=== PATIENT | female | born 1935 | race Caucasian/White ===

== ENCOUNTER 2020-03-26 10:17 | Outpatient (REF) | payer MEDICARE, SELFPAY ==
--- NOTE | ~2020-03-26 | MM_ITS ---
EXAMINATION: MM SCREENING DIGITAL BREAST TOMOSYNTHESIS, LEFT CLINICAL INFORMATION: Screening. Asymptomatic. Prior history right mastectomy for breast cancer 1982. Due for yearly. COMPARISON: Mammography: 03/14/2019, 07/28/2016 TECHNIQUE: Digital breast tomosynthesis is performed in both the craniocaudal and mediolateral oblique views along with computer-aided detection (CAD). Synthesized 2D images are generated from the tomosynthesis. FINDINGS: The breasts are almost entirely fatty (ACR BI-RADS breast composition Category a). There are no significant masses, abnormal calcifications, or other abnormalities. There are some vascular and ductal secretory calcifications again noted. No significant changes from prior studies. MM/MM tomosynthesis screening LT IMPRESSION: No mammographic evidence of malignancy. ASSESSMENT: BI-RADS 2: Benign RECOMMENDATION: Routine annual mammography screening. This patient's information was entered into a reminder system with a target due date for their next mammogram.
== END 2020-03-26 10:18 | disposition home or self-care (01) ==
LOC: HO.MAMMO 10:17
PROVIDERS: PCP Internal Medicine; Visit Provider Internal Medicine
DX: Z12.31 Encounter for screening mammogram for malignant neoplasm of breast (principal); Z85.3 Personal history of malignant neoplasm of breast; Z90.11 Acquired absence of right breast and nipple
CPT/HCPCS: 77063; 77067

== ENCOUNTER 2021-04-05 12:11 | Outpatient (REF) | payer MEDICARE, SELFPAY ==
--- NOTE | ~2021-04-05 | MM_ITS ---
EXAMINATION: MM SCREENING DIGITAL MAMMOGRAPHY, LEFT CLINICAL INFORMATION: Remote right mastectomy for breast cancer, 1982. Due for yearly. COMPARISON: Mammography: 03/26/2020, 03/14/2019, 07/28/2016 TECHNIQUE: Digital mammography is performed in craniocaudal and mediolateral oblique views along with computer-aided detection (CAD). FINDINGS: There are scattered areas of fibroglandular density (ACR BI-RADS breast composition Category b). There are no significant masses, abnormal calcifications, or other abnormalities. No significant changes from prior exams. MM/MM screening mammo unilat LT IMPRESSION: No mammographic evidence of malignancy. ASSESSMENT: BI-RADS 1: Negative RECOMMENDATION: Routine annual mammography screening. This patient's information was entered into a reminder system with a target due date for their next mammogram.
== END 2021-04-05 12:12 | disposition home or self-care (01) ==
LOC: HO.MAMMO 12:11
PROVIDERS: PCP Internal Medicine; Visit Provider Internal Medicine
DX: Z12.31 Encounter for screening mammogram for malignant neoplasm of breast (principal)
CPT/HCPCS: 77067

== ENCOUNTER 2021-05-19 10:30 | Outpatient (REF) | payer MEDICARE, SELFPAY ==
[2021-05-19 10:33] LABS: MANUAL DIFF FLAG NO
[2021-05-19 10:50] LABS: Basophils Percent Auto 0.9 % (0-2); Eosinophils Absolute Auto 0.3 X10*3/uL (0.0-0.4); Eosinophils Percent Auto 5.4 % (0-4); Hematocrit 38.7 % (37.0-47.0); Hemoglobin 12.6 g/dl (12.0-16.0); Lymphocytes Percent Auto 42.7 % (20-40); Mean Corpuscular HGB Conc 32.6 g/dl (31.0-35.0); Mean Corpuscular Hemoglobin 30.8 pg (27.0-33.0); Mean Corpuscular Volume 94.6 fL (80.0-98.0); Mean Platelet Volume 9.2 fL (9.4-12.3); Monocytes Absolute Auto 0.5 X10*3/uL (0.1-1.2); Neutrophils Absolute Auto 1.9 x10*3/uL (2.0-8.3); Platelet Count 227 X10*3/uL (160-400); Red Blood Count 4.09 X10*6/uL (4.20-5.50); Red Cell Distribution Width 13.3 % (11.0-16.0); White Blood Count 4.6 X10*3/uL (4.8-10.8)
[2021-05-19 10:51] LABS: Appearance Urine HAZY; Color Urine YELLOW; Glucose Urine UA NEG (NEG); Leukocyte Esterase Urine 3+ (NEG); Nitrite Urine NEG (NEG); PH 7.5 (5.0-8.0); Urine Blood 1+ (NEG); Urine Ketones NEG (NEG); Urine Protein NEG (NEG-TRACE)
[2021-05-19 10:57] LABS: Alanine Aminotransferase 19 U/L (0-31); Albumin Level 3.9 g/dL (3.5-5.0); Alkaline Phosphatase 68 U/L (39-117); Anion Gap 12 (12-20); Aspartate Amino Transferase 23 U/L (5-31); Bilirubin Total 0.7 mg/dL (0.0-1.0); Blood Urea Nitrogen 12 mg/dL (9-16); Calcium 9.5 mg/dL (8.4-10.2); Carbon Dioxide 29 mmol/L (22-29); Chloride 104 mmol/L (96-108); Cholesterol 204 mg/dL; Estimated Glomerular Filt Rate > 60; Glucose Fasting 89 mg/dL (60-99); HDL Cholesterol 68 mg/dL; LDL Cholesterol Calculated 116 mg/dl; Potassium 4.5 mmol/L (3.3-5.1); Sodium 140 mmol/L (135-145); Total Protein 7.1 g/dL (6.5-8.0); Triglycerides 101 mg/dL
[2021-05-19 11:05] LABS: RBC Urine 0 /HPF (0)
[2021-05-19 11:06] LABS: WBC Clumps Urine NOTED
== END 2021-05-19 10:31 | disposition home or self-care (01) ==
LOC: HO.LNP 10:30
PROVIDERS: Visit Provider Internal Medicine
DX: Z00.00 Encounter for general adult medical examination without abnormal findings (principal); I10 Essential (primary) hypertension
CPT/HCPCS: 80053; 80061; 81001; 81003; 85025

== ENCOUNTER 2021-05-26 10:52 | Outpatient (REF) | payer MEDICARE, SELFPAY ==
[2021-05-26 12:05] LABS: Appearance Urine CLEAR; Color Urine YELLOW; Glucose Urine UA NEG (NEG); Leukocyte Esterase Urine NEG (NEG); Nitrite Urine NEG (NEG); Specific Gravity - Urine <= 1.005 (1.005-1.025); Urine Blood TRACE (NEG); Urine Ketones NEG (NEG); Urine Protein NEG (NEG-TRACE)
[2021-05-26 12:17] LABS: RBC Urine 0-2 /HPF (0); Squamous Epithelial Cell Urine TRACE /LPF; WBC Urine 0-2 /HPF (0-4)
== END 2021-05-26 10:53 | disposition home or self-care (01) ==
LOC: HO.LNP 10:52
PROVIDERS: Visit Provider Internal Medicine
DX: R31.9 Hematuria, unspecified (principal)
CPT/HCPCS: 81001; 81003

== ENCOUNTER 2022-05-25 10:47 | Outpatient (REF) | payer MEDICARE, SELFPAY ==
[2022-05-25 10:50] LABS: MANUAL DIFF FLAG NO
[2022-05-25 12:45] LABS: Basophils Percent Auto 0.8 % (0-2); Eosinophils Absolute Auto 0.3 X10*3/uL (0.0-0.4); Eosinophils Percent Auto 6.7 % (0-4); Hematocrit 40.1 % (37.0-47.0); Hemoglobin 12.9 g/dl (12.0-16.0); Imm Gran Abs Auto 0.01 X10*3/uL (0.00-0.03); Imm Gran Pct Auto 0.2 % (0.0-0.4); Lymphocytes Absolute Auto 2.2 X10*3/uL (1.2-4.9); Lymphocytes Percent Auto 45.7 % (20-40); Mean Corpuscular HGB Conc 32.2 g/dl (31.0-35.0); Mean Corpuscular Hemoglobin 30.1 pg (27.0-33.0); Mean Corpuscular Volume 93.5 fL (80.0-98.0); Mean Platelet Volume 9.8 fL (9.4-12.3); Monocytes Absolute Auto 0.5 X10*3/uL (0.1-1.2); Monocytes Percent Auto 9.4 % (2-11); Neutrophils Absolute Auto 1.8 x10*3/uL (2.0-8.3); Neutrophils Percent Auto 37.2 % (45-73); Platelet Count 225 X10*3/uL (160-400); Red Blood Count 4.29 X10*6/uL (4.20-5.50); Red Cell Distribution Width 13.1 % (11.0-16.0); White Blood Count 4.9 X10*3/uL (4.8-10.8)
[2022-05-25 13:16] LABS: Appearance Urine Cloudy; Color Urine Yellow; Glucose Urine UA Negative (Negative); Leukocyte Esterase Urine Large (3+) (Negative); Nitrite Urine Positive (Negative); PH 7.5 (5.0-9.0); Specific Gravity - Urine 1.015 (1.005-1.025); UMIC TRIGGER UACC YES; Urine Blood Trace (Negative); Urine Ketones Negative (Negative); Urine Protein Trace mg/dL (Neg-Trace)
[2022-05-25 13:17] LABS: Alanine Aminotransferase 11 U/L (0-31); Albumin Level 3.9 g/dL (3.5-5.0); Alkaline Phosphatase 68 U/L (39-117); Anion Gap 10 (12-20); Aspartate Amino Transferase 22 U/L (5-31); Bilirubin Total 0.7 mg/dL (0.0-1.0); Blood Urea Nitrogen 13 mg/dL (9-16); Calcium 9.3 mg/dL (8.4-10.2); Carbon Dioxide 29 mmol/L (22-29); Chloride 108 mmol/L (96-108); Cholesterol 210 mg/dL; Estimated Glomerular Filt Rate > 60; Glucose Fasting 88 mg/dL (60-99); HDL Cholesterol 67 mg/dL; LDL Cholesterol Calculated 125 mg/dl; Potassium 4.4 mmol/L (3.3-5.1); Sodium 143 mmol/L (135-145); Total Protein 6.7 g/dL (6.5-8.0); Triglycerides 90 mg/dL
[2022-05-25 13:19] LABS: Bacteria Urine 4+ (None Seen); Hyaline Casts Urine 0-2 /LPF (0-2); Squamous Epithelial Cell Urine 0-2 /HPF (0-2); UACC Culture Trigger YES; WBC Urine >50 /HPF (0-5)
== END 2022-05-25 10:48 | disposition home or self-care (01) ==
LOC: HO.LNP 10:47
PROVIDERS: Visit Provider Internal Medicine
DX: Z00.00 Encounter for general adult medical examination without abnormal findings (principal); I10 Essential (primary) hypertension; R82.90 Unspecified abnormal findings in urine; Z86.2 Personal history of diseases of the blood and blood-forming organs and certain disorders involving the immune mechanism
CPT/HCPCS: 80053; 80061; 81001; 85025; 87086; 87088; 87186

== ENCOUNTER 2022-06-09 12:01 | Outpatient (REF) | payer MEDICARE, SELFPAY ==
[2022-06-09 12:25] LABS: Appearance Urine Clear; Color Urine Yellow; Glucose Urine UA Negative (Negative); Leukocyte Esterase Urine Trace (Negative); Nitrite Urine Negative (Negative); PH 6.5 (5.0-9.0); UMIC TRIGGER UACC YES; Urine Blood Negative (Negative); Urine Ketones Negative (Negative); Urine Protein Negative (Neg-Trace)
[2022-06-09 12:37] LABS: Bacteria Urine None Seen (None Seen); RBC Urine 0-2 /HPF (0-2); Squamous Epithelial Cell Urine 0-2 /HPF (0-2); WBC Urine 0-5 /HPF (0-5)
== END 2022-06-09 12:02 | disposition home or self-care (01) ==
LOC: HO.LNP 12:01
PROVIDERS: Visit Provider Internal Medicine
DX: R31.9 Hematuria, unspecified (principal)
CPT/HCPCS: 81001

== ENCOUNTER 2024-10-04 12:09 | Emergency (ER) | payer MEDICARE, SELFPAY ==
--- NOTE | ~2024-10-04 | CT_ITS ---
CLINICAL HISTORY: ams --- Additional Notes or Special Instructions: Tried to scan @ 14:45 - pt combative, notified provider CT head without contrast Comparison: None provided Findings: No intra-axial mass, midline shift, hydrocephalus, or acute hemorrhage. Moderate atrophy-like change or white matter disease. The visualized paranasal sinuses and mastoid air cells are normal. The orbits are within normal limits. There is no acute fracture. IMPRESSION: 1. No acute intracranial findings. 2. Moderate atrophy-like change or white matter disease. This document has been electronically signed by: Diane Brown MD on 10/04/2024 18:45:02
--- OUTSIDE RECORDS SUMMARY | 2024-10-04 11:24 | XMS_ITS | Continuity of Care Document ---
Author Organization [facility] Address 1 [facility] [address] [place] [address] Phone Care Team Providers Care Grinding Room Supervisor Name Role Phone Aicha Rowe NP Unavailable Unavailable Allergies, Adverse Reactions, Alerts Substance Reaction Status Criticality No Known Allergies Active No Inform ation Medications Medication Instructions Dosage Effective Dates (start - stop) Status Comments acetaminophen 325 mg tablet TAKE 2 TABLETS BY MOUTH THREE TIMES A DAY. CAN BE CRUSHED. - Active ASPIRIN 81 MG CHEWABLE TABLET CHEW 1 TABLET BY MOUTH ONCE A DAY - Active Bactrim 400 mg-80 mg tablet take 1/2 tablet by oral route once at bedtime - Active trazodone 50 mg tablet take 1 tablet by oral route BID at 7am and at 5pm - Active irbesartan 75 mg tablet take 1/2 tablet by oral route every day - Active Miralax 17 gram oral powder packet Take oral route 17 g (~1 packet) dissolved in 4 to 8 ounces of beverage every other day - Active escitalopram 10 mg tablet take 1 tablet by oral route every day 10 MG - Active Cut N Crush misc All medication can be crush - Active Aricept 10 mg tablet take 1 tablet by oral route every day in the evening 10 MG - Active cyanocobalamin (vit B-12) 500 mcg tablet TAKE 1 TABLET BY MOUTH DAILY. - Active Vitamin D3 25 mcg (1,000 unit) tablet take 1 tablet by oral route every day 1 tablet - Active Advance Directives Directive Yes / No Effective Date File Name No Information Encounters Encounter Description Practice Location Reason(s) For Visit Diagnoses Date Provider [facility] [address] [address], [place], [place], [id number], tel:[phone] [place] No Information 5 Jae Holcomb. 1 [facility], [place], [place], [id number], [place]. tel:[phone] [facility], [address] [address], [place], [place], [id number], [place] tel:[phone] [place] No Information 5 Titus Leavitt. [facility] [place] [id number], [place]. tel:[phone] [facility], [facility], [place], [place], [id number], [place] tel:[phone] Boss No Information 5 Titus Leavitt. [address] [place], [id number], [place]. tel:[phone] [facility], [address] [address], [place], [place], [id number], [place] tel:[phone] Boss No Information 5 Titus Leavitt. [address] [place], [id number], [place]. tel:[phone] [facility], [address] [address], [place], [place], [id number], [place] tel:[phone] Boss Severe Alzheimer's dementia of other onset with other behavioral disturbanceDementia in other diseases classified elsewhere, severe, with other behavioral disturbance 5 Titus Leavitt. [address] [place], [id number], [place]. tel:[phone] [facility], [facility] [address] [place] [address], [id number], [place] tel:[phone] Boss Acute Visit (chief complaint) Recurrent UTISevere late onset Alzheimer's dementia with agitationDementia in other diseases classified elsewhere, severe, with agitation 5 Titus Leavitt. [address], [place], [place], [id number], [place]. tel:[phone] [facility] [address] [facility], [place], [place], [id number], [place] tel:[phone] Boss Acute Visit (chief complaint)P ost Hospital Evaluation (chief complaint) Primary hypertensionHistory of recent hospitalizationSevere Alzheimer's dementia of other onset with agitationDementia in other diseases classified elsewhere, severe, with agitationOnychomycosis of toenail 5 Titus Leavitt. [address], [place], [place], [id number], [place]. tel:[phone] [facility], [place], [place], [id number], [place] tel:[phone] Boss Encounter for nutritional assessmentUnderweight 5 Matthias Ford. [address], [place], [place], [id number], [place]. tel:[phone] [facility], [facility], [place], [place], [id number], [place] tel:[phone] Boss Acute cough 5 Titus Leavitt. [address] [place], [place], [address], [place]. tel:[phone] [facility], [address], [place], [place], [id number], [place] tel:[phone] Boss Semi-Annual (chief complaint) Routine health maintenancePrimary hypertensionAge-related osteoporosis without current pathological fractureModerate late onset Alzheimer's dementia with agitationDementia in other diseases classified elsewhere, moderate, with agitation 5 Titus Leavitt. [address], [place], [place], [id number], [place]. tel:[phone] [facility], [address], [place], [place], [id number], [place] tel:[phone] Boss No Information 5 Titus Leavitt. [address] [place], [place], [id number], [place]. tel:[phone] [facility] [address] [facility], [place], [place], [address], [place] tel:[phone] Boss Encounter for rehabilitation evaluation 0 5 Mary Paulino. [address], [place], [place], [id number], [place]. tel:[phone] [facility], [facility] [address], [place], [place], [address], [place] tel:[phone] Boss Recurrent UTI 5 Titus Leavitt. [address], [place], [place], [address], [place]. tel:[phone] [facility] [address] [facility], [place], [place], [id number], [place] tel:[phone] Boss Encounter for rehabilitation evaluation 5 Danyel Manjarrez. [address], [place], [place], [id number], [place]. tel:[phone] [facility] [address] [facility], [place], [place], [id number], [place] tel:[phone] Boss Acute Visit (chief complaint) Severe late onset Alzheimer's dementia with agitationDementia in other diseases classified elsewhere, severe, with agitationPrimary hypertension May- 5 Titus Leavitt. [address] [place], [place], [id number], [place]. tel:[phone] [facility], [address], [place], [place], [id number], [place] tel:[phone] Boss Severe late onset Alzheimer's dementia with agitationDementia in other diseases classified elsewhere, severe, with agitation Apr- 5 Titus Leavitt. [address], [place], [place], [id number], [place]. tel:[phone] [facility], [place], [place], [id number], [place] tel:[phone] Boss No Information Mar-1 0-202 5 Titus Leavitt. [address], [place], [place], [id number], [place]. tel:[phone] [facility], [address] [facility] [address], [place], [place], [id number], [place] tel:[phone] [place] Recurrent UTI Apr-0 3202 5 Jae Holcomb. [facility] [place], [place], [id number], [place]. tel:[phone] [facility], [place], [place], [id number], [place] tel:[phone] Boss Other abnormalities of gait and mobility Feb-1 1-202 5 Katie Gomez. [address], [place], [place], [id number], [place]. tel:[phone] [facility] [address] [facility] [address], [place], [place], [id number], [place] tel:[phone] Boss Other abnormalities of gait and mobility Feb-0 7-202 5 Katie Gomez. [address], [place], [place], [id number], [place]. tel:[phone] [facility] [address] [facility] [address], [place], [place], [address], [place] tel:[phone] Boss Other abnormalities of gait and mobility Feb-0 4-202 5 Katie Gomez. [address], [place], [place], [id number], [place]. tel:[phone] [facility], [place], [place], [address], [place] tel:[phone] Boss Other abnormalities of gait and mobility Alexandre-3 0-202 5 Katie Gomez. [address], [place], [place], [id number], [place]. tel:[phone] [facility], [address], [place], [place], [id number], [place] tel:[phone] Boss Other abnormalities of gait and mobility 5 Katie Gomez. [address], [place], [place], [id number], [place]. tel:[phone] [facility], [address], [place], [place], [id number], [place] tel:[phone] Boss Other abnormalities of gait and mobility 5 Katie Gomez. [address], [place], [place], [address], [place]. tel:[phone] [facility], [address], [place], [place], [id number], [place] tel:[phone] Boss Other abnormalities of gait and mobility 5 Katie Gomez. [address], [place], [place], [id number], [place]. tel:[phone] [facility], [address], [place], [place], [address], [place] tel:[phone] Boss Other abnormalities of gait and mobility 5 Katie Gomez. [address], [place], [place], [address], [place]. tel:[phone] [facility], [address], [place], [place], [address], [place] tel:[phone] Boss Encounter for rehabilitation evaluation 5 Katie Gomez. [address], [place], [place], [address], [place]. tel:[phone] [facility], [address], [place], [place], [id number], [place] tel:[phone] Boss Acute cough 5 Titus Leavitt. [address], [place], [place], [id number], [place]. tel:[phone] [facility], [address], [place], [place], [id number], [place] tel:[phone] Boss Hemiplegia and hemiparesis following unspecified cerebrovascular disease affecting right non-dominant sideOther abnormalities of gait and mobility 4 Katie Gomez. [address] [place], [place], [id number], [place]. tel:[phone] [facility], [address], [place], [place], [address], [place] tel:[phone] Boss Other abnormalities of gait and mobilityMuscle weakness (generalized) 4 Katie Gomez. [address], [place], [place], [address], [place]. tel:[phone] [facility], [address], [place], [place], [address], [place] tel:[phone] Boss Other abnormalities of gait and mobilityMuscle weakness (generalized) 4 Katie Gomez. [address], [place], [place], [id number], [place]. tel:[phone] [facility], [address], [place], [place], [address], [place] tel:[phone] Boss Other abnormalities of gait and mobility 4 Katie Gomez. [address], [place], [place], [address], [place]. tel:[phone] [facility], [address], [place], [place], [id number], [place] tel:[phone] Boss Encounter for rehabilitation evaluation 4 Katie Gomez. [address], [place], [place], [id number], [place]. tel:[phone] [facility], [address], [place], [place], [id number], [place] tel:[phone] Boss No Information 4 Titus Tree. [address] [place], [place], [address], [place]. tel:[phone] [facility], [address], [place], [place], [id number], [place] tel:[phone] Boss No Information 4 Titus Tree. [address] [place], [place], [address], [place]. tel:[phone] [facility], [address] [facility] [address], [place], [place], [id number], [place] tel:[phone] Boss Difficulty in walkin g, not elsewhere classified Nov0 4 Katie Gomez. [address] [place], [address], [place]. tel:[phone] [facility], [address] [facility] [address], [place], [place], [address], [place] tel:[phone] Boss Semi-Annual (chief complaint) Age-related osteoporosis without current pathological fractureRight hip painSevere late onset Alzheimer's dementia without behavioral disturbance, psychotic disturbance, mood disturbance, or anxietyDementia in other diseases classified elsewhere, severe, without behavioral disturbance, psychotic disturbance, mood disturbance, and anxiety 4 Titus Leavitt. [address] [place], [id number], [place]. tel:[phone] [facility], [address], [place], [place], [address], [place] tel:[phone] Boss Other abnormalities of gait and mobility 0 4 Katie Gomez. [address] [place], [address], [place]. tel:[phone] [facility], [address] [facility] [address], [place], [place], [id number], [place] tel:[phone] Boss Other abnormalities of gait and mobilityMuscle weakness (generalized) Nov- 4 Katie Gomez. [address] [place], [address], [place]. tel:[phone] [facility], [address], [place], [place], [address], [place] tel:[phone] Boss Encounter for rehabilitation evaluation 4 Katie Gomez. [address], [place], [place], [address], [place]. tel:[phone] [facility], [address], [place], [place], [id number], [place] tel:[phone] Boss Other abnormalities of gait and mobility Nov- 4 Katie Gomez. [address], [place], [place], [id number], [place]. tel:[phone] [facility], [address], [place], [place], [address], [place] tel:[phone] Boss Other abnormalities of gait and mobility Nov- 4 Katie Gomez. [address], [place], [place], [address], [place]. tel:[phone] [facility], [address], [place], [place], [address], [place] tel:[phone] Boss No Information 4 Titus Leavitt. [address], [place], [place], [address], [place]. tel:[phone] [facility], [address], [place], [place], [address], [place] tel:[phone] Boss Encounter for rehabilitation evaluation 4 Katie Gomez. [address], [place], [place], [id number], [place]. tel:[phone] [facility], [address], [place], [place], [address], [place] tel:[phone] Boss No Information 4 Titus Leavitt. [address] [place], [place], [address], [place]. tel:[phone] [facility], [address] [facility] [address], [place], [place], [address], [place] tel:[phone] Boss Other specified heal th status 4 Titus Leavitt. [address] [place], [place], [id number], [place]. tel:[phone] [facility], [facility], [place], [place], [address], [place] tel:[phone] Boss Unspecified hearing loss, unspecified ear 4 Titus Leavitt. [address] [place], [place], [address], [place]. tel:[phone] [facility], [facility], [place], [place], [address], [place] tel:[phone] Boss Acute UTI (urinary tract infection) 4 Titus Tree. [address] [place], [place], [address], [place]. tel:[phone] [facility], [address] [facility], [place], [place], [address], [place] tel:[phone] Boss Acute Visit (chief complaint) Excessive cerumen in right ear canalOnychomycosis of toenailSevere late onset Alzheimer's dementia without behavioral disturbance, psychotic disturbance, mood disturbance, or anxietyDementia in other diseases classified elsewhere, severe, without behavioral disturbance, psychotic disturbance, mood disturbance, and anxiety 4 Titus Leavitt. [address] [place], [place], [address], [place]. tel:[phone] [facility], [address] [facility] [address] [address], [place], [place], [address], [place] tel:[phone] Boss Semi-Annual (chief complaint) Primary hypertensionAge-related osteoporosis without current pathological fractureSevere late onset Alzheimer's dementia without behavioral disturbance, psychotic disturbance, mood disturbance, or anxietyDementia in other diseases classified elsewhere, severe, without behavioral disturbance, psychotic disturbance, mood disturbance, and anxiety 4 Titus Leavitt. [address], [place], [place], [address], [place]. tel:[phone] [facility], [address] [facility] [address], [place], [place], [id number], [place] tel:[phone] Boss Encounter for rehabilitation evaluation 4 Danyel Manjarrez. [address] [facility], [place], [place], [address], [place]. tel:[phone] [facility], [address] [facility], [place], [place], [address], [place] tel:[phone] Boss Encounter for rehabilitation evaluation 4 Katie Patricia. [address] [place], [address], [place]. tel:[phone] [facility], [address] [facility] [address], [place], [place], [address], [place] tel:[phone] Boss Semi-Annual (chief complaint) Primary hypertensionAge-related osteoporosis without current pathological fractureSevere late onset Alzheimer's dementia without behavioral disturbance, psychotic disturbance, mood disturbance, or anxietyDementia in other diseases classified elsewhere, severe, without behavioral disturbance, psychotic disturbance, mood disturbance, and anxiety 3 Titus Leavitt. [address], [place], [place], [id number], [place]. tel:[phone] [facility], [facility], [place], [place], [address], [place] tel:[phone] Boss No Information 3 Humberto Vallejo. [address] [facility] [place], [address], [place]. tel:[phone] [facility], [address] [facility] [address], [place], [place], [address], [place] tel:[phone] Boss No Information 3 Titus Leavitt. [address] [place], [place], [address], [place]. tel:[phone] [facility], [address], [place], [place], [address], [place] tel:[phone] Boss Acute Visit (chief complaint) Wound, open 3 Titus Leavitt. [address] [facility], [place], [place], [id number], [place]. tel:[phone] [facility], [address] [facility] [address] [address], [place], [place], [address], [place] tel:[phone] Boss OV (chief complaint) Acute sore throat Oct- 3 Titus Leavitt. [address] [place], [address], [place]. tel:[phone] [facility], [facility], [place], [place], [id number], [place] tel:[phone] Boss Follow-up (chief complaint) Excessive cerumen in right ear canalBruise Oct-0 3 Kevin Dupree. [address] [place], [address], [place]. tel:[phone] [facility], [address] [facility] [address], [place], [place], [address], [place] tel:[phone] Boss No Information 3 Titus Leavitt. [address], [place], [place], [address], [place]. tel:[phone] [facility], [address] [facility], [place], [place], [address], [place] tel:[phone] Boss Semi-Annual (chief complaint)O V (chief complaint) Acute left ankle pain 3 Titus Leavitt. [address] [place], [address], [place]. tel:[phone] [facility], [address], [place], [place], [address], [place] tel:[phone] Boss Encounter for rehabilitation evaluation 3 Katie Gomez. [address] [place], [address], [place]. tel:[phone] [facility], [address] [facility], [place], [place], [address], [place] tel:[phone] Boss Encounter for nutritional assessment 3 Maddy Yaneli. [address], [place], [address]. tel:[phone] [facility], [address] [facility], [place], [place], [address], [place] tel:[phone] Boss Encounter for rehabilitation evaluation 3 Katie Gomez. [address] [place], [address], [place]. tel:[phone] [facility], [address] [facility] [facility], [place], [place], [address], [place] tel:[phone] Boss Post Enrollment Evaluation (chief complaint) Osteoporosis, unspecified osteoporosis type, unspecified pathological fracture presenceHypertension, unspecified typeSevere late onset Alzheimer's dementia without behavioral disturbance, psychotic disturbance, mood disturbance, or anxietyDementia in other diseases classified elsewhere, severe, without behavioral disturbance, psychotic disturbance, mood disturbance, and anxiety 3 Titus Leavitt. [address], [place], [place], [address], [place]. tel:[phone] [facility], [address] [facility], [place], [place], [address], [place] tel:[phone] Boss Encounter for rehabilitation evaluation 3 Theroux Anyi. [address], [place], [address]. tel:[phone] [facility], [address] [facility], [place], [place], [address], [place] tel:[phone] Boss History of recent hospitalization 3 Titus Leavitt. [address], [place], [place], [id number], . tel:[phone] Family History Family Member Type Diagnosis Age At Onset No Information Immunizations Vaccine Date Status Comments Fluzone High Dose 2023- administered So urce: New Immunization Record FLUAD QUAD - SENIOR DOSE administered Source: New Immuniza tion Record Prevnar 20 administered Source: New Imm unization Record Zoster administered Source: Other P rovider COVID-19 Pfizer Bivalent 12y+ administered Source: Other Regist ry COVID-19 (Pfizer) administered Source: Ot her Provider Flu-IIV4, p-free High Dose administered S ource: Other Registry COVID-19 Pfizer administered Source: Othe r Registry Flu-IIV3, p-free High Dose administered S ource: Other Registry COVID-19 (Pfizer) administered Source: Ot her Provider COVID-19 Pfizer unknown Source: Othe r Registry COVID-19 (Pfizer) administered Source: Ot her Provider COVID-19 Pfizer unknown Source: Othe r Registry Flu-RIV4 administered Source: Other R egistry Flu-IIV3, p-free High Dose administered S ource: Other Registry PPSV23 administered Source: Other R egistry RZV (Shingrix) administered Source: Other Registry Flu-IIV3, p-free High Dose administered S ource: Other Registry RZV (Shingrix) administered Source: Other Registry Tdap administered Source: Other R egistry Flu-IIV3,p-free administered Source: Othe r Registry Flu-IIV3, p-free High Dose administered S ource: Other Registry Payers Payer name Insurance type Covered constitution party ID Bonnie barrera(s) [facility] [id number] [address] [place] [address] [id number] [facility] 16 [id number] [facility] 16 [id number] Social History Type Description Quantity Date Captured Comments Alcohol Use Details Unknown Caffeine Use Details Unknown Tobacco Use Status No Information Smoking Status No Information Sex Female Chief Complaint And Reason For Visit No Information Plan Of Treatment Date Type Action Status Referral Ordered: Referrals: Audiology Hearing and Speech. Consult ordered Referral Referred To: Keagan Ordered: Referrals: [facility]iology [facility]. [facility]. [facility] Referral Ordered: Referrals: [facility] [place]- Dental Location: [facility] Appointment date/timeframe: 10/11/2022 ordered Referral Ordered: Referrals: [facility] [place]- Vision Location: [facility] Appointment date/timeframe: 10/03/2022 ordered Referral Ordered: Referrals: [facility] [place]- Podiatry Location: [facility] [place] Appointment date/timeframe: 09/25/2022 ordered Future Order: Lab Order Urinalys is, Macroscopic ([id number]), Ordered on: Ordered Future Order: Radiology Order Ch est X-ray, 2 views ([id number]), Ordered on: Ordered Future Order: Radiology Order Ch est X-ray, 4+ views ([id number]), Ordered on: Ordered Future Order: Radiology Order Ab domen and Pelvis CT WITHOUT Contrast ([id number]), Ordered on: Ordered Future Order: Radiology Order An kle X-ray; Complete (3+ views) ([id number]), Ordered on: Ordered Future Order: Lab Order CULTURE, URINE, ROUTINE ([id number]), Ordered on: Ordered Future Order: Lab Order URINALYS IS, COMPLETE W/REFLEX TO CULTURE ([id number]), Ordered on: Ordered History Of Present Illness Encounter Date Complaint History Of Prese nt Illness Acute Visit The patient was evaluated due to reports of combative behavior, primarily during personal care activities. Staff report that she is generally calm throughout the day, with no other behavioral concerns noted outside of care-related interactions. However, during care, she becomes agitated, at times striking out at staff and hitting herself, which presents challenges in providing routine care and ensuring her safety.The patient was observed at the dining table during the visit, appearing calm and without signs of discomfort. She has a diagnosis of severe dementia and is not a reliable historian. Acute Visit Post Hospital Evaluation [place] is a 89-year-old predominantly Montenegrin speaking female, past medical history significant for cognitive impairment/dementia (currently resides in a locked unit), osteoporosis, who presented to the [facility] ER on 07/30/2024 following an unwitnessed fall. Work up was negative. It was later discovered via culture that she had UTI. She is being treated with cefpodoxime. Today she is here accompanied by her daughter. Patient is calm and have no acute concern. Patient has been having behavior lately with intermittent UTI. She was transitioned to comfort measures only. Patient is not a good historian given her dementia. No concern for fever, chills, dysuria, and pain Semi-Annual 89 year old joshua munson who just enrolled the [facility] program 07/20/2022, The patient was seen at home for her semi-annual assessment, accompanied by her daughter. There have been no hospitalizations, SNF admission and/or ER visits in the last six months. She resides at the [facility]. Ppt does not routinely come to the [facility] site. The patient has difficulty recalling details and faces a language barrier due to severe dementia, making it hard for her to communicate. Recently, there has been a noticeable decline in her dementia with an increase in agitation, with multiple reports of her becoming aggressive during personal care. Care staff have noted that the patient often hits herself or others during these times. She was previously admitted to a facility due to her behavior, but all tests returned normal, and no medication adjustments were made. Upon her return, staff continued to report agitation, leading to the initiation of trazodone with her daughter's consent. The dosage had to be increased as behavior persisted. The daughter was informed that, with dementia progression, increased agitation and anxiety are common, and the need for more medication raises the risk of falls and other side effects. The daughter agreed to transition her mother to comfort measures only. The RN will take paperwork for daughter to sign. Today, the patient is calmer, especially when her daughter is present. Lab work was conducted, and according to her daughter, the patient has no issues taking her medications. Since she is not on many medications, none will be discontinued today. The patient is currently receiving treatment for a urinary tract infection.. There has been no report of behavior or fall. Patient continue to be functional as tolerated. Patient and daughter has no complaints. Daughter did report that patient wanders at time. Medications were reviewed. Advance Directives reviewed,MOLST form filled by HCP and patient. 4M'sMentation- Dementia with severe short term and recent memory impairment. No significant behavior.. No evident of depression. Medications-medication reasonable. She is on no benzo. No highly sedatives, or anticholinergic. On reasonable BP medication, Mobility-no deviceMost important- Comfort and function Acute Visit Patient seen in common area. She appears comfortable calm and was cooperative until we proceed to take her sweatshirt off to check her BP. According to staff, patient has been faring well since the start of trazodone. She was transferred to the ER for behaviors-combativeness, hitting and punching. Patients with severe dementia, therefore, she is not a good historian. Staff reported no concern. I spoke with daughter and she had no acute concern. Semi-Annual 88 year old joshua munson who just enrolled the [facility] program 07/20/2022, she is here with her daughter for her semiannual. There have been no hospitalizations, SNF admission and/or ER visits in the last six months. She resides at the [facility]. Ppt does not routinely come to the PACE site. Patient is exhibiting an increased limp on her right side and is expressing discomfort in her anterior thigh and groin area. I have ordered x-ray which was unremarkable. The has been no report of behavior or fall. Patients continue to be functional as tolerated. Patient and daughter has no complaints. Medications were reviewed. Advance Directives reviewed,MOLST form filled by HCP and patient. 4M'sMentation- Dementia with severe short term and recent memory impairment. No significant behavior.. No evident of depression. Medications-medication reasonable. She is on no benzo. No highly sedatives, or anticholinergic. On reasonable BP medication Acute Visit Patient is here for Toenail care as they are thick and daughter is unable to do them and for earwax removal Semi-Annual 87-year-old joshua munson who just enrolled the [facility] program 07/20/2022, she is here with her daughter for her semiannual. There have been no hospitalizations, SNF admission and/or ER visits in the last six months. She resides at the [facility]. Ppt does not routinely come to the [facility]ACE site. There has been no report of behavior or fall. Patients continue to be functional as tolerated. Patient and daughter has no complaints. Medications were reviewed. Advance Directives reviewed,MOLST form filled by HCP and patient. 4M'sMentation- Dementia with severe short term and recent memory impairment. No significant behavior.. No evident of depression. Medications-medication reasonable. She is on no benzo. No highly sedatives, or anticholinergic. On reasonable BP medication, Mobility-no deviceMost important- Comfort and functionMOLST done and documented 07/26/2022. Ppt elected DNR/DNR, use of non-invasive ventilation, transfer to hospital, use dialysis, but no artificial hydration or nutrition. HCP is invoked, primary proxy is daughter, Kamala Guzman, and secondary proxy is daughter, Catherine Cunningham Semi-Annual 87 year old joshua munson who just enrolled the [facility] program 07/20/2022, she is here with her daughter for her semi annual. There have been no hospitalizations, SNF admission and/or ER visits in the last six months. She resides at the [facility]. Ppt does not routinely come to the [facility]ACE site. She did have a significant skin tear of unknown etiology a couple of month ago which has resolved. The has been no report of behavior or fall. Patient continue to be functional as tolerated. Patient and daughter has no complaints. Daughter did report that patient wanders at time. Medications were reviewed. Advance Directives reviewed,MOLST form filled by HCP and patient. 4M'sMentation- Dementia with severe short term and recent memory impairment. No significant behavior.. No evident of depression. Medications-medication reasonable. She is on no benzo. No highly sedatives, or anticholinergic. On reasonable BP medication, Mobility-no deviceMost important- Comfort and functionMOLST done and documented 07/26/2022. Ppt elected DNR/DNR, use of non-invasive ventilation, transfer to hospital, use dialysis, but no artificial hydration or nutrition. HCP is invoked, primary proxy is daughter, Kamala Guzman, and secondary proxy is daughter, Catherine Cunningham Acute Visit An 87-year-old adair zurita with a medical history of osteoporosis, hypertension, and Alzheimer's disease is being examined for a wound on her back. The staff at the [facility] are unaware of how the patient obtained the wound, and her daughter is also unclear about its cause. The patient's ability to recall events accurately is limited. The wound is only on the surface and has been covered with a foam dressing. The patient does not seem to be experiencing any pain. OV The patient and their daughter have come to the clinic for a follow-up regarding the patient's throat pain. The patient began complaining about the pain over the weekend and requested a clinic appointment on Sunday. The primary nurse assessed the patient and did not find any cause for concern. Today, the patient is seen with their daughter. It is important to note that the patient has dementia and is not reliable in providing a detailed medical history. The patient denies experiencing any pain and does not show any signs of pain. According to the daughter, an on-call provider sent someone to the patient's home over the weekend and prescribed an antibiotic for an ear infection. Follow-up This 87-year-old female was seen today for follow-up. She was on her PCP's schedule today, however he was out and I am unsure exactly what the follow-up was for. Ppt is accompanied by her dtr today, who requested we look at ppt's bruise and check her ears for wax.ROS: Limited due to dementia. Denies painExam:Vital signs as belowWell-developed, elderly woman in no acute distressSclera anictericFading green bruise to right side adventist, slight ecchymosis to right cheekLeft TM pearly christine with slight cerumen. Right TM with excess cerumenMucosal membranes decently hydrated OV The patient came in for an ankle evaluation, and the nurse informed me that the patient had already seen a lean manufacturing coordinator who recommended further evaluation by a provider. Since the patient is not a reliable historian, her daughter accompanied her to the appointment. The patient denies experiencing any pain and does not exhibit any signs of discomfort or grimacing when her ankle is palpated. Additionally, the patient is able to bear weight on the affected ankle without any difficulty. There is no information provided about any previous injury to the patient's ankle. Semi-Annual Post Enrollment Evaluation 87 ye ar old female who just enrolled the [facility] program 07/20/2022, she is here with her daughter for her PEE. There have been no hospitalizations, SNF admission and/or ER visits in the last six months. She resides at home with 24/hr care monitor, walks without a device. Ppt does not routinely come to the [facility] site. She tells me that she has been doing well. Patient and daughter has no complaints. Daughter did report that patient wanders at time. Medications were reviewed. Advance Directives reviewed,MOLST form filled by HCP and patient. 4M'sMentation- Dementia with severe short term and recent memory impairment. No significant behavior.. No evident of depression. Medications-medication reasonable. She is on no benzo. No highly sedatives, or anticholinergic. On reasonable BP medication, Mobility-no deviceMost important- Comfort and function Instructions Date Instruction Additional Infor mation In light of her beha vioral symptoms and the impact on care delivery, trazodone will be increase The patient will be closely monitored for response and tolerability. 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 Her daughter was contacted and agreed with the plan Related to Dementia in other diseases classified elsewhere, severe, with agitation Given recurrent infe ction, will start her on a prophylactic. Will get a UA to rule out current infection Related to Recurrent UTI No edema or opened a arun on leg. Left 5th toe corn was shaved down as it was tender to palpation. B/l toenails were cut, and filed down. There was no bleeding and patient tolerated procedure well. Related to Onychomycosis of toenail Severe dementia. Per daughter, she was diagnosed 5-7 years ago. She takes Aricept. Very forgetful, No concern about wandering or behaviors. No concerns for behavior. Patient is taking all of her medication without difficulty. 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 Per daughter, she was diagnosed 5-7 years ago. She takes Aricept. Very forgetful, No concern about wandering or behaviors. No concerns for behavior. Patient is taking all of her medication without difficulty. 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 Workup was negative Related to History of recent hospitalization No significant heart history, no obesity, no history of stroke. BP very soft this visit. In the setting of advance age and falls, I have decreased avapro to 75mg once daily. Will continue and monitor Related to Primary hypertension Severe dementia. Per daughter, she was diagnosed 5-7 years ago. She takes Aricept. Very forgetful, No concern about wandering or behaviors. However, patient has started to have behaviors-agitation, combativeness while getting care as she doesn't like to be nude in front of others. I first added escitalopram, which had a positive response but ppt progressed to being more agitated which lead to an ER transfer and work-up was unremarkable. On discharged, I started trazodone and she has been doing well. HCP is daughter and has been invoked. Very forgetful, she lives with 24hour supervision. No concern about wandering or behaviors. CT head 03/2023 [facility] supports Alzheimer's disease, global volume loss and low density white matter changes. MOCA 05/18.Daughter has agreed to transition her to [facility]. RN to take paperwork for signature. Related to Moderate late onset Alzheimer's dementia with agitation Severe dementia. Per daughter, she was diagnosed 5-7 years ago. She takes Aricept. Very forgetful, No concern about wandering or behaviors. However, patient has started to have behaviors-agitation, combativeness while getting care as she doesn't like to be nude in front of others. I first added escitalopram, which had a positive response but ppt progressed to being more agitated which lead to an ER transfer and work-up was unremarkable. On discharged, I started trazodone and she has been doing well. HCP is daughter and has been invoked. Very forgetful, she lives with 24hour supervision. No concern about wandering or behaviors. CT head 03/2023 [facility] supports Alzheimer's disease, global volume loss and low density white matter changes. MOCA 05/18.Daughter has agreed to transition her to [facility]. RN to take paperwork for signature. Related to Dementia in other diseases classified elsewhere, moderate, with agitation No recent fall, or c urrent fracture. Will continue to monitor Related to Age-related osteoporosis without current pathological fracture No significant heart history, no obesity, no history of stroke. BP controlled on avapro. Will continue and monitor Related to Primary hypertension Foot care is manage by RN. Will continue to monitor Related to Routine health maintenance No significant heart history, no obesity, no history of stroke. BP controlled on avapro. Will continue and monitor Related to Primary hypertension Severe dementia. Per daughter, she was diagnosed 5-7 years ago. She takes Aricept. Very forgetful, No concern about wandering or behaviors. However, patient has started to have behaviors-agitation, combativeness while getting care as she doesn't like to be nude in front of others. I first added escitalopram, which had a positive response but ppt progressed to being more agitated which lead to an ER transfer and work-up was unremarkable. On discharged, I started trazodone and she has been doing well. HCP is daughter and has been invoked She takes aricept. Very forgetful, she lives with 24hour supervision. No concern about wandering or behaviors. HCP is daughter and has been invoked. CT head 03/2023 [facility] supports Alzheimer's disease, global volume loss and low density white matter changes. MOCA 05/18. 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 Per daughter, she was diagnosed 5-7 years ago. She takes Aricept. Very forgetful, No concern about wandering or behaviors. However, patient has started to have behaviors-agitation, combativeness while getting care as she doesn't like to be nude in front of others. I first added escitalopram, which had a positive response but ppt progressed to being more agitated which lead to an ER transfer and work-up was unremarkable. On discharged, I started trazodone and she has been doing well. HCP is daughter and has been invoked She takes aricept. Very forgetful, she lives with 24hour supervision. No concern about wandering or behaviors. HCP is daughter and has been invoked. CT head 03/2023 [facility] supports Alzheimer's disease, global volume loss and low density white matter changes. MOCA 05/18. Related to Dementia in other diseases classified elsewhere, severe, with agitation new wet cough after gi bug. sat 90% room air. Nursing saw ppt. ? aspiration. Per nursing doing okay however staff concerned do not know ppt well will do chest xray. Related to Acute cough CT head 03/2023 [facility] supports Alzheimer's disease, global volume loss and low density white matter changes.MOCA 05/18. Severe dementia. Per daughter she was diagnosed 5-7 years ago. She takes aricept. Very forgetful, she lives with 24hour supervision. No concern about wandering or behaviors. HCP is daughter and has been invoked Related to Severe late onset Alzheimer's dementia without behavioral disturbance, psychotic disturbance, mood disturbance, or anxiety CT head 03/2023 [facility] supports Alzheimer's disease, global volume loss and low density white matter changes.MOCA 05/18. Severe dementia. Per daughter she was diagnosed 5-7 years ago. She takes aricept. Very forgetful, she lives with 24hour supervision. No concern about wandering or behaviors. HCP is daughter and has been invoked Related to Dementia in other diseases classified elsewhere, severe, without behavioral disturbance, psychotic disturbance, mood disturbance, and anxiety Right Hip pain with radiation to right groin area and anterior thigh. some tenderness to RLQ. xray of right hip unremarkable. Unknown etiology. Pain especially with walking. Patient do not appear toxic, no concern with appetite.-CT of ABD and pelvis ordered Related to Right hip pain No recent fall, or c urrent fracture. No record to tell how long she has been taking forsemax or if she has had a DEXA done. Will continue forsemax and monitor Related to Age-related osteoporosis without current pathological fracture Seems a little withd rawn, and flat which is different from her baseline. Patient just got through a covid infection without treatment or any symptom. Unsure if post covid has any effect on her behavior. I will get a urine and blood work and follow up. Related to Dementia in other diseases classified elsewhere, severe, without behavioral disturbance, psychotic disturbance, mood disturbance, and anxiety Seems a little withd rawn, and flat which is different from her baseline. Patient just got through a covid infection without treatment or any symptom. Unsure if post covid has any effect on her behavior. I will get a urine and blood work and follow up. Related to Severe late onset Alzheimer's dementia without behavioral disturbance, psychotic disturbance, mood disturbance, or anxiety No edema or opened a arun on leg. Patient has mild corn on multiple toes and do not appear to be painful. B/l toenails were cut, and filed down. There was no bleeding and patient tolerated procedure well. Ppt reported some improvement with her discomfort. Related to Onychomycosis of toenail Cerumen removed by Roopa Patel as it appears soft. Minimum trauma to canal, no swelling or bleeding Related to Excessive cerumen in right ear canal CT head 03/2023 [facility] supports Alzheimer's disease, global volume loss and low density white matter changes.MOCA 05/18. Severe dementia. Per daughter she was diagnosed 5-7 years ago. She takes aricept. Very forgetful, she lives with 24hour supervision. No concern about wandering or behaviors. HCP is daughter and has been invoked Related to Dementia in other diseases classified elsewhere, severe, without behavioral disturbance, psychotic disturbance, mood disturbance, and anxiety CT head 03/2023 [facility] supports Alzheimer's disease, global volume loss and low density white matter changes.MOCA 05/18. Severe dementia. Per daughter she was diagnosed 5-7 years ago. She takes aricept. Very forgetful, she lives with 24hour supervision. No concern about wandering or behaviors. HCP is daughter and has been invoked Related to Severe late onset Alzheimer's dementia without behavioral disturbance, psychotic disturbance, mood disturbance, or anxiety No recent fall, or c urrent fracture. No record to tell how long she has been taking forsemax or if she has had a DEXA done. Will continue foresemax and monitor Related to Age-related osteoporosis without current pathological fracture No significant heart history, no obesity, no history of stroke. BP controlled on avapro. Will continue and monitor Related to Primary hypertension MOCA 05/18. Severe de mentia. Per daughter she was diagnosed 5-7 years ago. She takes aricept. Very forgetful, she lives with 24hour supervision. No concern about wandering or behaviors. HCP is daughter and has been invoked Related to Dementia in other diseases classified elsewhere, severe, without behavioral disturbance, psychotic disturbance, mood disturbance, and anxiety MOCA 05/18. Severe de mentia. Per daughter she was diagnosed 5-7 years ago. She takes aricept. Very forgetful, she lives with 24hour supervision. No concern about wandering or behaviors. HCP is daughter and has been invoked Related to Severe late onset Alzheimer's dementia without behavioral disturbance, psychotic disturbance, mood disturbance, or anxiety No recent fall, or c urrent fracture. No record to tell how long she has been taking forsemax or if she has had a DEXA done. Will continue foresemax and monitor Related to Age-related osteoporosis without current pathological fracture No significant heart history, no obesity, no history of stroke. BP controlled on avapro. Will continue and monitor Related to Primary hypertension Involved only the ep idermis layer. wound appears non infected. Cleansed wound with NS and apply medihoney and cover with foam dressing change once weekly and prn when soiled.-Tylenol 500mg BID for 14 day Related to Wound, open InStEd was initiated over the weekend for sore throat but then discovered ppt only with ear pain. Amoxicillin was initiated by on-call provider. Today patient with evident of injected throat likely d/t post nasal drip. Its important to note that patient had a ear lavage in clinic over a week ago which according to daughter was very painful to ppt. Therefore, I am unsure if pain in ear was d/t to trauma or true infection. However, the trauma happened over a week which may not be the cause of the acute pain. Ear canal and TM appear WNL without infection or trauma. I will continue the antibiotic as per patient, she has improved. Will continue to monitor Related to Acute sore throat - Right ear flushed by MA today. I observed her ear afterwards, most of the wax was removed- Order for Debrox given. Ppt's dtr declined return visit, will check ears in 1 week Related to Excessive cerumen in right ear canal Cause of bruise uncl ear. No fall reported by GIANFRANCO.- Monitor, she does not have any tenderness to touch Related to Bruise Tenderness right ove r the left malleolus. Pain is not a concern as patient is moving joint without grimacing. Unsure the etiology. Given tenderness in the anterior aspect of left malleolus and swelling, I will get an xray.Continue current pain management xray unremarkable Related to Acute left ankle pain MOCA 05/18. Severe de mentia. Per daughter she was diagnosed 5-7 years ago. She takes aricept. Very forgetful, she lives with 24hour supervision. No concern about wandering or behaviors. HCP is daughter and will be invoked. Related to Dementia in other diseases classified elsewhere, severe, without behavioral disturbance, psychotic disturbance, mood disturbance, and anxiety MOCA 05/18. Severe de mentia. Per daughter she was diagnosed 5-7 years ago. She takes aricept. Very forgetful, she lives with 24hour supervision. No concern about wandering or behaviors. HCP is daughter and will be invoked. Related to Severe late onset Alzheimer's dementia without behavioral disturbance, psychotic disturbance, mood disturbance, or anxiety Pre-enrollment. No s ignificant heart history, no obesity, no history of stroke. BP controlled on avapro. Will continue and wait for record Related to Hypertension, unspecified type on Pre-enrollment an d verified by daughter. On aledronate, no record to tell how long she has been taking it or if she has had a DEXA done. I have asked the office to reach out for records. Daughter can't remember when alendronate was started. I will continue alendronate and wait for record. Will discuss repeat DEXA scan on next encounter Related to Osteoporosis, unspecified osteoporosis type, unspecified pathological fracture presence Assessments Type Assessment Date No Information Goals Health Concern Goal Type Priority Status Date Haven is at risk for functional decline related to hypertension, memory impairment secondary to dementia, poor posture secondary to osteoarthritis and osteoporosis, pain right thigh Haven will remain at current level of functioning supervision/prompti ng with all ADL's, and independent with ambulation for 6 months. Patient Goal Complete Haven is at risk for functional decline related to hypertension, memory impairment secondary to dementia, poor posture secondary to osteoarthritis and osteoporosis. Haven will remain at current level of functioning supervision/prompti ng with all ADL's, and independent with ambulation for 6 months. Patient Goal Complete Alteration in thought process related to Dementia. Limited ability to communicate. Her language fluctuates between Montenegrin and Indonesian. Haven will remain living safely in the community through the next review. Patient Goal Continued Haven is at risk for elopement secondary to memory impairment secondary to dementia. Haven will not wander from [facility]ACE center or home environment for 6 months. Patient Goal Continued
[2024-10-04 12:16] VITALS: BP 131/63; BP 138/67; PULSE 80; PULSE 82; RESP 17; TEMP 36.8; O2SAT 95; O2SAT 97; BMI 20.9
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
[2024-10-04 12:34] LABS: MANUAL DIFF FLAG NO
[2024-10-04 12:35] LABS: Hematocrit 32.7 % (37.0-47.0); Hemoglobin 10.6 g/dl (12.0-16.0); Imm Gran Abs Auto 0.01 X10*3/uL (0.00-0.03); Imm Gran Pct Auto 0.2 % (0.0-0.4); Lymphocytes Absolute Auto 1.4 X10*3/uL (1.2-4.9); Mean Corpuscular HGB Conc 32.4 g/dl (31.0-35.0); Mean Corpuscular Hemoglobin 30.9 pg (27.0-33.0); Mean Corpuscular Volume 95.3 fL (80.0-98.0); NRBC Pct Auto 0.0 /100WBC (0.0-0.2); Platelet Count 198 X10*3/uL (160-400); Red Blood Count 3.43 X10*6/uL (4.20-5.50); White Blood Count 5.0 X10*3/uL (4.8-10.8)
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
[2024-10-04 12:36] LABS: NRBC Abs Auto 0.000 X10*3/uL (0.0-0.012)
[2024-10-04 12:53] LABS: Alanine Aminotransferase 10 U/L (0-31); Albumin Level 3.8 g/dL (3.5-5.0); Alkaline Phosphatase 61 U/L (39-117); Anion Gap 10 (12-20); Aspartate Amino Transferase 22 U/L (5-31); Blood Urea Nitrogen 20 mg/dL (9-16); Calcium 8.9 mg/dL (8.4-10.2); Carbon Dioxide 26 mmol/L (22-29); Chloride 109 mmol/L (96-108); Creatinine Clr Calc Pharmacy 43.7; Estimated Glomerular Filt Rate > 60; Magnesium 2.2 mg/dL (1.6-2.6); Potassium 3.8 mmol/L (3.3-5.1); Sodium 141 mmol/L (135-145); Total Protein 6.6 g/dL (6.5-8.0)
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
--- OUTSIDE RECORDS SUMMARY | 2024-10-04 16:02 | XMS_ITS | Patient Health Record ---
Author Organization [facility] Address [address] [place] [address] Care Team Providers Care Medical Affairs Director Name Role Phone Zackary Wong MD Primary Care Provider Erickson Askew Jr Unavailable [phone] Reason For Referral No Information Medications Medication SIG (Take, Route, Frequency, Duration) Notes Start Date End Date Status Naproxen 375mg Activ e Aspir-81 81mg Active MoviPrep 100 GM as directed before colonoscopy Orally for 1 dose 05/15/2013 02/20/2024 Active Alendronate Sodium 70mg Active Atenolol 100mg Activ e Vitamin D3 2000iu Ac tive Caltrate 600+D 600mg Active Donezepil HCl-10 mg Active Problems Problem Type SNOMED Code ICD Code Onset Dates Problem Status W/U Status Risk Notes Problem Colon cancer screening (V76.51) Active confirmed Problem Long-term current use of aspirin (411013979616 103) Aspirin long-term use (V58.66) Active confirmed Plan Of Treatment No Information Insurance Providers Payer Name Payer Address Payer Phone Subscriber Number Group Number Insured Name Patient Relationship to Insured Coverage Start Date Coverage End Date [facility] [address] [place] [address] [id number] SILVINA DAVIES Self - patient is the insured Medical (General) History Medical History History ICD Code hypertension breast cancer-right 1979 insomnia osteoporosis degenerative joint disease Surgical History Surgery Date(Month/Year) tonsillectomy mastectomy 1979 hysterectomy appendectomy
--- OUTSIDE RECORDS SUMMARY | 2024-10-04 16:02 | XMS_ITS | Patient Health Record ---
Author Organization [facility] Address [address] [place] [address] Care Team Providers Care Offset Lithographic Press Setter Name Role Phone Zackary Wong MD Primary Care Provider Carolynn Woo Unavailable [phone] Allergies No Known Allergies Reason For Referral No Information Medications Medication SIG (Take, Route, Frequency, Duration) Notes Start Date End Date Status Donepezil HCl 5 MG 1 tablet at bedtime Orally Once a day; Duration: 30 day(s) Active Aspirin 81 81 MG 1 tablet Orally Once a day; Duration: 30 day(s) Active Irbesartan 150 MG Oral; Duration: 90 Active Alendronate Sodium 70 MG Oral; Duration: 84 Active Caltrate 600+D3 Acti ve Vitamin D-3 25 MCG (1000 UT) 1 capsule Orally Once a day; Duration: 30 day(s) Active Immunizations Vaccine Route Administration Date Status Comme nts COVID-19 Pfizer BioNTech Vaccine Unknown 04/20/2020 Administered First Dose: 10/2020 Social History Tobacco Use: Social History Observation Description Date Details (start date - stop date) Former Smoker NA - NA Tobacco Use/Smoking Question Answer Notes Are you a: former smoker Additional Findings: Tobacco Non-User Current no n-smoker Alcohol Screen Question Answer Notes Did you have a drink containing alcohol in the p ast year? No Points 0 Interpretation Negative Tobacco use other than smoking: Question Answer Notes Are you an other tobacco user? No Problems Problem Type SNOMED Code ICD Code Onset Dates Problem Status W/U Status Risk Notes Problem Acquired hammer toe of right foot (0693875976858863) Other hammer toe(s) (acquired), right foot (M20.41) Active confirmed Problem Acquired hammer toe of left foot (6416323820818654) Hammer toe of left foot (M20.42) Active confirmed Problem Bilateral atherosclerosis of arteries of lower limbs (disorder) (48961929339557771 ) Atherosclerosis of artery of both lower extremities (I70.203) Active confirmed Plan Of Treatment Pending Test Test Name Order Date [id number] NAIL, 1-5 01/03/2021 [id number] Plate 01/03/2021 Insurance Providers Payer Name Payer Address Payer Phone Subscriber Number Group Number Insured Name Patient Relationship to Insured Coverage Start Date Coverage End Date [employer] [address] [place] [address] [id number] Haven Granados Self - patient is the insured Medical (General) History Medical History History ICD Code Back pain Dementia Surgical History Surgery Date(Month/Year) Masectomy 1981
[2024-10-04 17:07] VITALS: PULSE 77; RESP 13; O2SAT 94
[2024-10-04 17:18] VITALS: BP 166/83; PULSE 73; RESP 15; TEMP 36.8; O2SAT 94
--- NOTE | 2024-10-04 17:25 | PC.NURSE ---
pt to CT at this time. 1:1 sitter remains present throghout transport.
[2024-10-04 18:19] LABS: Appearance Urine Clear; Glucose Urine UA Negative (Negative); PH 6.0 (5.0-9.0); Specific Gravity - Urine 1.020 (1.005-1.025)
--- NOTE | 2024-10-04 18:31 | ECG_ITS ---
Test Reason : AGGRESSIVE Blood Pressure : */* mmHG Vent. Rate : 84 BPM Atrial Rate : 84 BPM P-R Int : 246 ms QRS Dur : 80 ms QT Int : 384 ms P-R-T Axes : 68 2 58 degrees QTcB Int : 453 ms Sinus rhythm with 1st degree A-V block Otherwise normal ECG When compared with ECG of 24-May-2005 10:51, No significant changes seen Referred By: Regi Kline Electronically Signed By: Christiano Sifuentes
--- NOTE | 2024-10-04 18:36 | PC.NURSE ---
straight catheterization performed as patient is unable to void. multiple staff members needed for assistance. 100ml of clear, pale yellow, non-foul smelling urine noted immediately post output. pt tolerated well. specimen obtained/sent to lab.
[2024-10-04 18:38] VITALS: BP 163/90; PULSE 90; RESP 17; TEMP 36.7; O2SAT 94
[2024-10-04 18:54] LABS: Troponin-I High Sensitivity 4.9 ng/L (<3.5-17.0)
--- NOTE | 2024-10-04 19:06 | PC.NURSE ---
this rn assumed care of pt, pt resting in stretcher, sitter at bedside, pt offers no complaints.
--- NOTE | 2024-10-04 19:31 | PC.NURSE ---
attempted to give report to [facility] x3, no answer at this time.
--- NOTE | 2024-10-04 19:57 | PC.NURSE ---
attempted to call report x2, now reaching only voicemail at this time
--- NOTE | 2024-10-04 20:36 | PC.NURSE ---
report given to Catherine DURON at facility
[2024-10-04 21:05] VITALS: BP 155/92; PULSE 87; RESP 20; TEMP 36.6; O2SAT 97
--- NOTE | 2024-10-05 01:06 | PC.NURSE ---
ems at bedside for report and transport
[2024-10-05 01:08] VITALS: BP 155/92; PULSE 87; RESP 20; TEMP 36.6; O2SAT 97
== END 2024-10-05 01:12 | disposition other institution (70) ==
PROVIDERS: Physician Assistant; Emergency Provider Emergency Medicine
DX: R41.82 Altered mental status, unspecified (principal); F03.90 Unspecified dementia, unspecified severity, without behavioral disturbance, psychotic disturbance, mood disturbance, and anxiety; Z79.82 Long term (current) use of aspirin
CPT/HCPCS: 36415; 70450; 80053; 81003; 83735; 84484; 85025; 93005; 99284

== ENCOUNTER → 2024-10-04 12:23 | Outpatient (BNV) | payer MEDICARE, MEDICAID, SELFPAY | PROVIDERS: Emergency Provider Emergency Medicine; Visit Provider Student in an Organized Health Care Education/Training Program | DX: R41.82 Altered mental status, unspecified (principal) | CPT/HCPCS: 70450 ==

== ENCOUNTER → 2024-10-04 18:31 | Outpatient (BNV) | payer MEDICARE, SELFPAY | PROVIDERS: Emergency Provider Emergency Medicine; Visit Provider Internal Medicine Cardiovascular Disease | DX: I44.0 Atrioventricular block, first degree (principal) | CPT/HCPCS: 93010 ==